=== PATIENT | male | born 2005 | race Two or more races ===

== ENCOUNTER 2023-09-20 20:05 | Emergency (ER) | payer OTHER ==
[~2023-09-20] VITALS: Ht 154.9 cm; Wt 113.4 kg
[2023-09-20 21:03] VITALS: BP 143/79; TEMP 99.1; O2SAT 98
[2023-09-20] MEDS ORDERED: AMOX500C2 PO (21:26)
== END 2023-09-20 21:34 | disposition home or self-care (01) ==
LOC: ER 20:13
DX: H66.91 Otitis media, unspecified, right ear (principal)

== ENCOUNTER 2024-09-30 00:16 | Emergency (ER) | payer OTHER ==
[~2024-09-30] VITALS: Ht 177.8 cm; Wt 95.3 kg
[~2024-09-30 00:16] MED LIST: AMOX500C2 PO
[2024-09-30] MEDS ORDERED: LIDO28CR2 TP (01:32)
[2024-09-30] MEDS ORDERED: CEPH-570 PO (01:32)
[2024-09-30 01:48] VITALS: BP 132/91; TEMP 98.3; O2SAT 98
== END 2024-09-30 01:48 | disposition home or self-care (01) ==
LOC: ER 00:23
DX: L05.91 Pilonidal cyst without abscess (principal)